=== PATIENT | female | born 1965 | race Caucasian/White ===

== ENCOUNTER → 2016-10-16 | Outpatient (CLI) | payer BC ==
[~2016-10-16] VITALS: Ht 167.6 cm; Wt 94.3 kg
[~2016-10-16] MED LIST: ACTOPLUS MET1 TABLE1 PO; AMARYL1 MG; GLIMEPIRIDE4 MG PO; HYDROCODON-ACE1 EAC7 PO; JANUVIA100 MG PO; JANUVIA25 MG
== END | disposition home or self-care (01) ==
LOC: AMB 07:54
PROC: 0DJD8ZZ Inspection of Lower Intestinal Tract, Via Natural or Artificial Opening Endoscopic (ICD-10-PCS; principal; 2016-10-16)
DX: Z12.11 Encounter for screening for malignant neoplasm of colon (principal); K57.30 Diverticulosis of large intestine without perforation or abscess without bleeding; K64.8 Other hemorrhoids; Z98.84 Bariatric surgery status; Z80.0 Family history of malignant neoplasm of digestive organs; E11.9 Type 2 diabetes mellitus without complications; Z80.3 Family history of malignant neoplasm of breast; Z82.3 Family history of stroke; Z83.3 Family history of diabetes mellitus; Z90.710 Acquired absence of both cervix and uterus
CPT/HCPCS: J2250